=== PATIENT | female | born 1935 | race Two or more races ===

== ENCOUNTER 2025-02-14 17:52 | Inpatient (IN) | payer MEDICARE, OTHER ==
[~2025-02-14] VITALS: Ht 157.5 cm; Wt 39.1 kg
[2025-02-14] MEDS: IV NS 0.9% 1,000 ML BAG IV ONE (18:49)
[2025-02-14 19:07] LABS: BASOPHILS # (AUTO) 0.1 K/uL (0.0-0.2); BASOPHILS % (AUTO) 0.7 % (0.0-2.0); EOSINOPHILS # (AUTO) 0.1 K/uL (0.0-0.7); EOSINOPHILS % (AUTO) 1.7 % (0.0-6.0); HEMATOCRIT 38 % (33-45); HEMOGLOBIN 12.9 g/dL (11.5-14.8); LYMPHOCYTES # (AUTO) 1.6 K/uL (0.8-4.8); MEAN CORPUSCULAR HEMOGLOBIN 32 PG (26.0-33.0); MEAN CORPUSCULAR HGB CONC 34 g/dl (31.0-36.0); MEAN CORPUSCULAR VOLUME 94 fL (82-100); MONOCYTES # (AUTO) 0.7 K/uL (0.1-1.30); MONOCYTES % (AUTO) 9.2 % (2.0-12.0); NEUTROPHILS # (AUTO) 5.4 K/uL (1.8-8.9); NEUTROPHILS % (AUTO) 68.4 % (43.0-81.0); PLATELET COUNT (AUTO) 267 K/uL (150-450); RED BLOOD CELL COUNT(AUTO) 4.08 MIL/uL (4.0-5.2); RED CELL DISTRIBUTION WIDTH 13.7 % (11.5-15.0); WHITE BLOOD COUNT (AUTO) 7.9 K/uL (4.3-11.0)
[2025-02-14 19:13] LABS: CARBON DIOXIDE 29 mmol/L (21-32); CHLORIDE 104 mmol/L (98-107); CREATININE 0.5 mg/dL (0.6-1.3); GLUCOSE 111 mg/dL (74-106); POTASSIUM 4.2 mmol/L (3.5-5.1); SODIUM SERUM 140 mmol/L (136-145); UREA NITROGEN, BLOOD 18 mg/dL (7-18)
[2025-02-14 19:19] LABS: ALANINE AMINOTRANSFERASE 19 U/L (12-78); ALBUMIN 3.1 g/dL (3.4-5.0); ALKALINE PHOSPHATASE 141 U/L (46-116); ASPARTATE AMINOTRANSFERASE 22 U/L (15-37); BILIRUBIN,DIRECT 0.1 mg/dL (0.0-0.2); BILIRUBIN,TOTAL 0.4 mg/dL (0.2-1.0); CALCIUM, SERUM 9.4 mg/dL (8.5-10.1); TOTAL PROTEIN, SERUM 7.8 g/dL (6.4-8.2)
[2025-02-14 19:20] LABS: SALICYLATE 0.7 mg/dL (2.8-20.0)
[2025-02-14 19:21] LABS: ACETAMINOPHEN 0 ug/ml (10-30); ALCOHOL, BLOOD < 3 mg/dL (0-10)
[2025-02-14 19:23] LABS: INR 1.03 (0.91-1.10); LACTIC ACID 1.5 mmol/L (0.4-2.0); PARTIAL THROMBOPLASTIN TIME 27.6 SEC (24.3-34.3); PROTHROMBIN TIME 10.9 SECS (9.2-11.1)
[2025-02-14 19:26] LABS: CREATINE KINASE, TOTAL 39 U/L (26-192)
[2025-02-14] MEDS ORDERED: PREG25CA PO (19:28)
[2025-02-14] MEDS ORDERED: MAGN400O6 PO (19:28)
[2025-02-14] MEDS ORDERED: MEMA10TA PO (19:28)
[2025-02-14] MEDS ORDERED: AUSTEDO XR PO (19:28)
[2025-02-14] MEDS ORDERED: MULT-225 PO (19:28)
[2025-02-14] MEDS ORDERED: ACET325T53 PO ×2 (19:28)
[2025-02-14] MEDS ORDERED: MELO-107 PO (19:28)
[2025-02-14] MEDS ORDERED: BISA10SU11 RC (19:28)
[2025-02-14] MEDS ORDERED: BREX2TAB PO (19:28)
[2025-02-14 19:58] LABS: APPEARANCE,URINE CLEAR (CLEAR); BILIRUBIN,URINE NEGATIVE (NEGATIVE); BLOOD, URINE 2+ Ery/uL (NEGATIVE); COLOR,URINE YELLOW (YELLOW); KETONES,URINE NEGATIVE (NEGATIVE); LEUKOCYTE ESTERASE ,URINE TRACE (NEGATIVE); NITRITE, URINE NEGATIVE (NEGATIVE); PH,URINE 6.5 (5.0-8.0); PROTEIN,URINE 2+ mg/dl (NEGATIVE); UGLUCOSE NEGATIVE (NEGATIVE)
[2025-02-14 20:00] LABS: AMPHETAMINE, URINE NEGATIVE (NEGATIVE); BARBITURATE, URINE NEGATIVE (NEGATIVE); BENZODIAZEPINE, URINE NEGATIVE (NEGATIVE); CANNABINOID, URINE NEGATIVE (NEGATIVE); COCCAINE, URINE NEGATIVE (NEGATIVE); OPIATE, URINE NEGATIVE (NEGATIVE); PHENCYCLIDINE SCREEN,URINE NEGATIVE (NEGATIVE)
[2025-02-14 20:42] LABS: ADD URINE CULTURE YES; BACTERIA,URINE Many /HPF (None Seen)
[2025-02-14 20:43] LABS: SQUAMOUS EPITHELIAL CELL,UR Few /HPF (None Seen)
[2025-02-14] MEDS ORDERED: MAGNESIUM HYDROXIDE 30 ML UDC PO PRN (21:00)
[2025-02-14] MEDS ORDERED: ONDANSETRON HCL/PF 4 MG/2 ML VIAL IVP PRN (21:00)
[2025-02-14] MEDS ORDERED: MAG HYDROX/AL HYDROX/SIMETH 30 ML UDC PO PRN (21:00)
[2025-02-14] MEDS ORDERED: ACETAMINOPHEN 325 MG TABLET PO PRN (21:00)
[2025-02-14] MEDS: CEFTRIAXONE 1GM BAG (ER ONLY) 50 ML IV ONE (21:21)
[2025-02-14] MEDS: CEFTRIAXONE 1 G in IV D5W 50 ML IV SCH (21:24)
[2025-02-14] MEDS: MEMANTINE HCL 5 MG TABLET PO SCH (21:28)
[2025-02-14] MEDS: ENOXAPARIN SODIUM 40 MG/0.4 ML DISP.SYRIN SQ SCH (21:31)
[2025-02-15 07:24] LABS: BASOPHILS % (AUTO) 0.4 % (0.0-2.0); EOSINOPHILS # (AUTO) 0.2 K/uL (0.0-0.7); EOSINOPHILS % (AUTO) 2.2 % (0.0-6.0); HEMATOCRIT 34 % (33-45); HEMOGLOBIN 11.5 g/dL (11.5-14.8); LYMPHOCYTES # (AUTO) 2.5 K/uL (0.8-4.8); LYMPHOCYTES % (AUTO) 30.9 % (20.0-44.0); MEAN CORPUSCULAR HEMOGLOBIN 31 PG (26.0-33.0); MEAN CORPUSCULAR HGB CONC 33 g/dl (31.0-36.0); MEAN CORPUSCULAR VOLUME 94 fL (82-100); MONOCYTES # (AUTO) 0.8 K/uL (0.1-1.30); MONOCYTES % (AUTO) 10.4 % (2.0-12.0); NEUTROPHILS # (AUTO) 4.6 K/uL (1.8-8.9); NEUTROPHILS % (AUTO) 56.1 % (43.0-81.0); PLATELET COUNT (AUTO) 245 K/uL (150-450); RED BLOOD CELL COUNT(AUTO) 3.65 MIL/uL (4.0-5.2); RED CELL DISTRIBUTION WIDTH 13.8 % (11.5-15.0); WHITE BLOOD COUNT (AUTO) 8.1 K/uL (4.3-11.0)
[2025-02-15 07:50] LABS: CALCIUM, SERUM 9.1 mg/dL (8.5-10.1); CREATININE 0.4 mg/dL (0.6-1.3); MAGNESIUM 2.1 mg/dL (1.8-2.4); POTASSIUM 3.6 mmol/L (3.5-5.1)
[2025-02-15 08:00] VITALS: BP 125/71; TEMP 97.7; O2SAT 97
[2025-02-15] MEDS: ENSURE ENLIVE CHOC 237 ML CAN PO SCH (08:24)
[2025-02-15] MEDS: PREGABALIN 25 MG CAPSULE PO SCH (09:00)
[2025-02-15] MEDS: MELOXICAM 7.5 MG TABLET PO SCH (09:00)
[2025-02-15] MEDS ORDERED: DEUTETRABENAZINE PO SCH (09:00)
[2025-02-15] MEDS: MULTIVITAMINS,THERAGRAN 1 UDTAB TABLET PO SCH (09:00)
[2025-02-15] MEDS ORDERED: Medication Not On Formulary EA (Brexpiprazole (Rexulti) 2 MG) PO SCH (09:00)
[2025-02-15] MEDS: PANTOPRAZOLE 40 MG VIAL IV SCH (09:00)
[2025-02-15 16:00] VITALS: BP 95/60; TEMP 97.9; O2SAT 97
[2025-02-15 20:00] VITALS: BP 103/71; TEMP 97.9; O2SAT 98
[2025-02-15 20:46] VITALS: BP 103/71; TEMP 97.9; O2SAT 98
[2025-02-16 08:00] VITALS: BP 127/63; TEMP 97.9; O2SAT 98
[2025-02-16] MEDS: PANTOPRAZOLE 40 MG TABLET.DR PO SCH (08:40)
[2025-02-16] MEDS: ENSURE ENLIVE 237 ML LIQUID (VANILLA) PO SCH (12:26)
[2025-02-16 16:00] VITALS: BP 97/64; TEMP 98.2; O2SAT 95
[2025-02-16 20:00] VITALS: BP 125/71; TEMP 97.8; O2SAT 97
[2025-02-17 02:20] VITALS: BP 125/71; TEMP 97.8; O2SAT 97
[2025-02-17 06:19] LABS: BASOPHILS % (AUTO) 0.4 % (0.0-2.0); EOSINOPHILS # (AUTO) 0.5 K/uL (0.0-0.7); EOSINOPHILS % (AUTO) 6.3 % (0.0-6.0); HEMATOCRIT 34 % (33-45); HEMOGLOBIN 11.2 g/dL (11.5-14.8); LYMPHOCYTES # (AUTO) 2.1 K/uL (0.8-4.8); LYMPHOCYTES % (AUTO) 28.6 % (20.0-44.0); MEAN CORPUSCULAR HEMOGLOBIN 31 PG (26.0-33.0); MEAN CORPUSCULAR HGB CONC 33 g/dl (31.0-36.0); MEAN CORPUSCULAR VOLUME 94 fL (82-100); MONOCYTES # (AUTO) 0.9 K/uL (0.1-1.30); MONOCYTES % (AUTO) 12.9 % (2.0-12.0); NEUTROPHILS # (AUTO) 3.8 K/uL (1.8-8.9); NEUTROPHILS % (AUTO) 51.8 % (43.0-81.0); PLATELET COUNT (AUTO) 239 K/uL (150-450); RED BLOOD CELL COUNT(AUTO) 3.57 MIL/uL (4.0-5.2); RED CELL DISTRIBUTION WIDTH 13.6 % (11.5-15.0); WHITE BLOOD COUNT (AUTO) 7.3 K/uL (4.3-11.0)
[2025-02-17 06:43] LABS: CALCIUM, SERUM 8.9 mg/dL (8.5-10.1); CREATININE 0.4 mg/dL (0.6-1.3); PHOSPHORUS 3.2 mg/dL (2.5-4.9); POTASSIUM 4.8 mmol/L (3.5-5.1)
[2025-02-17 07:00] VITALS: BP 119/64; TEMP 97.4; O2SAT 98
[2025-02-17 08:00] VITALS: BP 119/64; TEMP 97.4; O2SAT 98
[2025-02-17] MEDS ORDERED: QUETIAPINE FUMARATE 25 MG TABLET PO PRN (14:30)
[2025-02-17 16:00] VITALS: BP 100/66; TEMP 97.9; O2SAT 97
[2025-02-17 20:00] VITALS: BP_SYST 117; BP_DIAS 54; BP_DIAS 58; TEMP 97.4; O2SAT 99
[2025-02-17] MEDS: MIRTAZAPINE 15 MG TABLET PO SCH (22:00)
[2025-02-18 08:00] VITALS: BP 123/64; TEMP 97.5; O2SAT 97
[2025-02-18] MEDS ORDERED: Quetiapine Fumarate PO (08:45)
[2025-02-18] MEDS ORDERED: MIRT-121 PO (08:45)
== END 2025-02-18 14:30 | DRG 640 ==
LOC: ER 18:01 → MED 20:03
PROVIDERS: ATTEND Nurse Practitioner Acute Care
DX: R62.7 Adult failure to thrive (principal); G93.41 Metabolic encephalopathy; N39.0 Urinary tract infection, site not specified; F02.83 Dementia in other diseases classified elsewhere, unspecified severity, with mood disturbance; E44.1 Mild protein-calorie malnutrition; D68.59 Other primary thrombophilia; F02.84 Dementia in other diseases classified elsewhere, unspecified severity, with anxiety; F02.818 Dementia in other diseases classified elsewhere, unspecified severity, with other behavioral disturbance; G30.9 Alzheimer's disease, unspecified; F20.9 Schizophrenia, unspecified; F32.9 Major depressive disorder, single episode, unspecified; M16.11 Unilateral primary osteoarthritis, right hip; E88.09 Other disorders of plasma-protein metabolism, not elsewhere classified; G47.00 Insomnia, unspecified; Z74.01 Bed confinement status; Z79.899 Other long term (current) drug therapy; B96.89 Other specified bacterial agents as the cause of diseases classified elsewhere; F29 Unspecified psychosis not due to a substance or known physiological condition; R13.10 Dysphagia, unspecified
CPT/HCPCS: 36415; 70450-TC; 71045-TC; 80048-TC; 80076-TC; 81001; 82550-TC; 83605-TC; 83735-TC; 84100-TC; 84443-TC; 84484-TC; 85025-TC; 85730-TC; 87040-TC; 87081-TC; 87086-TC; 92526; 92611-TC; 97110-TC; 97112-TC; 97530-TC; A4223; G0378; G0480; J0696; J1650; J2470; J7030; J7040; J7060